=== PATIENT | male | born 1990 | race Hispanic/Latino ===

== ENCOUNTER 2019-01-04 13:50 | Emergency (ER) | payer SELFPAY ==
[2019-01-04] MEDS ORDERED: LIDOCAINE 5% TOPICAL PATCH TP ONE (14:55)
[2019-01-04] MEDS ORDERED: ORPHENADRINE CITRATE 30 MG/ML ML ONE (14:55)
[2019-01-04] MEDS ORDERED: KETOROLAC TROMETHAMINE 60 MG/2 ML VIAL ONE (14:55)
[2019-01-04] MEDS ORDERED: DEXAMETHASONE SOD PHOSPHATE 10MG/ML 1ML VIAL ONE (14:55)
== END 2019-01-04 15:53 | disposition home or self-care (01) ==
LOC: EDH 13:50
DX: M54.42 Lumbago with sciatica, left side (principal)
CPT/HCPCS: 96372 ×3; 99284; J1100; J1885; J2360

== ENCOUNTER 2023-05-13 03:09 | Emergency (ER) | payer OTHER, MEDICAID ==
[~2023-05-13] VITALS: Ht 172.7 cm; Wt 92.5 kg
[2023-05-13] MEDS ORDERED: PRED20TA3 PO (03:37)
[2023-05-13] MEDS ORDERED: TRAM50TA4 PO (03:37)
[2023-05-13] MEDS: KETOROLAC 60 MG VIAL (30MG/ML) IM ONE (03:52)
[2023-05-13] MEDS: DEXAMETHASONE SOD PHOSPHATE 4 MG/ML 1ML VIAL IV ONE (03:52)
[2023-05-13 04:53] VITALS: BP 125/69; PULSE 82; RESP 18; O2SAT 99
[2023-05-13] MEDS: MORPHINE 2 MG SYG IM ONE (05:56)
== END 2023-05-13 06:17 | disposition home or self-care (01) ==
LOC: EDH 03:09
DX: M54.32 Sciatica, left side (principal); K40.90 Unilateral inguinal hernia, without obstruction or gangrene, not specified as recurrent
CPT/HCPCS: 99284; 96374; 72100; 96372 ×2; J1100; J2270; J1885